=== PATIENT | female | born 1960 | race Caucasian/White ===

== ENCOUNTER 2018-11-17 01:29 | Observation (INO) | payer OTHER, SELFPAY ==
[2018-11-17 02:13] LABS: Absolute Lymphocytes (CBC) 1.9 K/uL (0.7-4.9); Basophils % 1.5 % (0-1.3); Eosinophils % 3.7 % (0-4.4); Hematocrit 38.6 % (36.0-45.0); Lymphocytes % 27.9 % (15.3-44.8); MPV 12.4 fL (7.6-11.3); Monocytes % 10.6 % (3.3-12.3); RBC Red Blood Cell Count 3.97 M/uL (3.86-4.86)
[2018-11-17 02:14] LABS: Protime INR 1.09
[2018-11-17 02:29] LABS: ALT/SGPT 27 U/L (12-78); AST/SGOT 24 U/L (15-37); Albumin 3.8 g/dL (3.4-5.0); Alkaline Phosphatase 103 U/L (45-117); BUN Blood Urea Nitrogen 19 mg/dL (7-18); Bicarbonate 27 mmol/L (21-32); Bilirubin Direct < 0.1 mg/dL (0-0.2); Bilirubin Total 0.4 mg/dL (0.2-1.0); Glucose Level 109 mg/dL (74-106); Magnesium 2.4 mg/dL (1.8-2.4); NT PRO-BNP 19 pg/mL (<125); Potassium 3.3 mmol/L (3.5-5.1); Protein, Total 7.9 g/dL (6.4-8.2); Sodium Level 142 mmol/L (136-145); Troponin (Emerg Dept Use Only) 0.02 ng/mL (0.0-0.045)
[2018-11-17] MEDS ORDERED: NA CHLORIDE 0.9% 100 ML IV ONE (02:31)
[2018-11-17] MEDS ORDERED: FOLIC ACID 5 MG/ML VIAL ONE (02:31)
[2018-11-17] MEDS ORDERED: PROPRANOLOL HCL 10 MG TAB ONE (02:34)
[2018-11-17 02:45] LABS: Thyroid Stimulating Hormone 4.64 uIU/mL (0.360-3.740)
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
--- NOTE | 2018-11-17 02:50 | ER ---
Nurse's Notes [facility] Name: Candace Burton Age: 57 yrs Sex: Female : 1960 Arrival Date: 11/17/2018 Time: 01:32 Bed 5 Private MD: Diagnosis: Chest pain, unspecified;Essential (primary) hypertension;Syncope and collapse-near;Hypokalemia Presentation: 11/17 01:39 Presenting complaint: Patient states: became dizzy and fatigued while at work at [place] [id number] [employer]. pt stated she had this happen before due to stress. 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 Transition of care: patient was not received from another setting of care. Onset of symptoms was November 17, 2018. Risk Assessment: Do you want to hurt yourself or someone else? Patient reports no desire to harm self or others. Initial Sepsis Screen: Does the patient meet any 2 criteria? No. Patient's initial sepsis screen is negative. Does the patient have a suspected source of infection? No. Patient's initial sepsis screen is negative. Care prior to arrival: IV initiated. 18 GA, in the left antecubital area, Glucose check: 146. 01:39 Acuity: LUIS EDUARDO 2 ak1 01:39 Method Of Arrival: EMS: [facility] Triage Assessment: 01:37 General: Appears in no apparent distress. Behavior is calm, cooperative. Pain: Denies ak1 pain. EENT: No signs and/or symptoms were reported regarding the EENT system. Neuro: Level of Consciousness is awake, alert, obeys commands, Oriented to person, place, time, situation, Appropriate for age Department Coordinator are equal bilaterally Moves all extremities. Speech is normal, Facial symmetry appears normal. Cardiovascular: No deficits noted. Respiratory: No deficits noted. GI: No signs and/or symptoms were reported involving the gastrointestinal system. : No signs and/or symptoms were reported regarding the genitourinary system. Derm: No signs and/or symptoms reported regarding the dermatologic system. Musculoskeletal: Reports generalized weakness and dizziness while at work. Historical: - Allergies: 01:37 Codeine; ak1 - Home Meds: 01:37 Synthroid 150 mcg Oral tab 1 tab once daily for Hypothyroidism [Active]; ak1 - PMHx: 01:37 Hypothyroidism; ak1 - PSHx: 01:37 None; ak1 - Immunization history:: Adult Immunizations not up to date, Flu vaccine is not up to date. Patient has never been vaccinated. - Social history:: Smoking status: Patient/guardian denies using tobacco. - Ebola Screening: : No symptoms or risks identified at this time. Screenin:43 Abuse screen: Denies threats or abuse. Denies injuries from another. Nutritional ak1 screening: No deficits noted. Tuberculosis screening: No symptoms or risk factors identified. Fall Risk None identified. Assessment: 01:44 Reassessment: Patient appears in no apparent distress at this time. pt in CT. see ak1 triage assessment. 02:25 Reassessment: Patient appears in no apparent distress at this time. Patient and/or ak1 family updated on plan of care and expected duration. Pain level reassessed. Patient is alert, oriented x 3, equal unlabored respirations, skin warm/dry/pink. Patient denies pain at this time. 02:40 Reassessment: Dr. Grier at bedside to inform pt of admission status. ak1 03:44 Reassessment: dr. Salomon at bedside. pt requesting something to "relax" her. ak1 Lopressor IV held due to heart rate of 59bpm, Dr. Salomon notified. . Vital Signs: 01:36 BP 190 / 97 RA Sitting (auto/lg); Pulse 86; Resp 14; Temp 97.5(O); Pulse Ox 98% on R/A; ak1 Weight 90.72 kg (R); Height 5 ft. 10 in. (177.80 cm) (R); Pain 0/10; 01:55 BP 167 / 97 LA Sitting (auto/lg); Pulse 75; Pulse Ox 98% ; ak1 02:00 BP 173 / 105 RA Sitting (auto/lg); Pulse 76; Pulse Ox 98% on R/A; ak1 02:44 BP 185 / 106; Pulse 69; Resp 14; Temp 97.5; Pulse Ox 98% on R/A; Pain 0/10; ak1 03:43 BP 176 / 98; Pulse 59; Resp 12; Temp 98.1; Pulse Ox 99% on R/A; Pain 0/10; ak1 01:36 Body Mass Index 28.70 (90.72 kg, 177.80 cm) ak1 ED Course: 01:31 Tan[facility] Haley F[facility]-C [facility] snw 01:31 Edouard Grier MD is Attending Physician. snw 01:32 Patient arrived in ED. ds1 01:35 Ciera Baker, RN is Primary Nurse. ak1 01:39 Arm band placed on Patient placed in an exam room, on a stretcher, on dye line operator, ak1 on pulse oximetry, Patient notified of wait time. 01:43 Triage completed. ak1 01:44 Patient has correct armband on for positive identification. Bed in low position. Call ak1 light in reach. Side rails up X 1. paper machine back tender on. Pulse ox on. NIBP on. 01:44 Maintain EMS IV. Dressing intact. Site clean \\T\\ dry. Gauge \\T\\ site: 18g left AC. ak 1 01:56 X-ray completed. Portable x-ray completed in exam room. Patient tolerated procedure kw well. 01:57 CT Stroke Brain w/o Contrast In Process Unspecified. EDMS 01:58 XRAY Chest (1 view) In Process Unspecified. EDMS 02:47 Sandor Mims MD is Hospitalizing Provider. jose eduardo 03:52 No provider procedures requiring assistance completed. Patient admitted, IV remains in ak1 place. Administered Medications: 02:19 Drug: foLIC Acid 1 mg Route: IVPB; Site: left antecubital; ak1 02:25 Follow up: IV Status: Completed infusion; IV Intake: 100ml ak1 02:24 Drug: Propranolol 20 mg Route: PO; ak1 02:40 Follow up: Response: No adverse reaction ak1 03:08 Drug: Lovenox 90 mg Route: Sub-Q; Site: right lower abdomen; rr5 04:56 Follow up: Response: No adverse reaction ak1 03:10 Drug: Norvasc 5 mg Route: PO; rr5 04:56 Follow up: Response: No adverse reaction ak1 03:11 Drug: Aspirin Chewable Tablet 324 mg Route: PO; rr5 04:56 Follow up: Response: No adverse reaction ak1 03:12 Drug: Potassium Effervescent Tablet 25 mEq Route: PO; rr5 04:56 Follow up: Response: No adverse reaction ak1 03:43 Not Given (heart rate 59bpm): Lopressor 5 mg IVP once; Hold for SBP <100 or HR <60. ak1 Intake: 02:25 IV: 100ml; Total: 100ml. ak1 Outcome: 02:50 Decision to Hospitalize by Provider. jose eduardo 03:52 Admitted to ER Hold. Please see [facility] for further documentation. ak1 03:52 Condition: stable 03:52 Instructed on the need for admit. 11:29 Patient left the ED. bp Signatures: Dispatcher [employer] EDMS Edouard Grier MD MD cha Therrien, Shelly, BICYCLE COURIER-C BICYCLE COURIER-CsnKassandra Portillo ds1 Marian Wu Amber RN RN ak1 Alejo Encarnacion, RN RN bp Castillo Robertson, RN RN rr5 Corrections: (The following items were deleted from the chart) 02:03 01:36 BP 190 / 97; Pulse 86bpm; Resp 14bpm; Pulse Ox 98% RA; Temp 97.5F Oral; 90.72 kg ak1 Reported; Height 5 ft. 10 in. Reported; BMI: 28.7; Pain 0/10; ak1 02:57 02:00 BP 173 / 105 Supine Auto R Arm Large; Pulse 76bpm; Pulse Ox 98% RA; ak1 ak1
[2018-11-17] MEDS ORDERED: ASPIRIN 81 MG CHEWABLE TABLET ONE (03:13)
[2018-11-17] MEDS ORDERED: ENOXAPARIN 100 MG/ML SYR SQ ONE (03:13)
[2018-11-17] MEDS ORDERED: AMLODIPINE 5 MG TAB ONE (03:13)
[2018-11-17] MEDS ORDERED: POTASSIUM 25 MEQ EFFERV TAB ONE (03:13)
[2018-11-17] MEDS ORDERED: METOPROLOL TARTRATE 5 MG/5 ML INJ IV ONE (03:14)
[2018-11-17] MEDS ORDERED: HYDRALAZINE HCL 20 MG/ML VIAL IV ONE (03:39)
--- NOTE | 2018-11-17 03:52 | P.HP ---
Certification for Inpatient Patient admitted to: Observation With expected LOS: <2 Midnights Practitioner: I am a practitioner with admitting privileges, knowledge of patient current condition, hospital course, and medical plan of care. Services: Services provided to patient in accordance with Admission requirements found in Title 42 Section 412.3 of the Code of Federal Regulations Patient History Date of Service: 11/17/18 Reason for admission: chest pain History of Present Illness: Ms Burton is a 57 years old woman, with history of hypothyroidism, who was at work yesterday night, when suddenly start feeling chest pain. It was located in substernal area, lasting for 5 minutes, burning sensation, 8/10 of intensity, radiated to her jaw. She denied nausea, SOB or diaphoresis episodes. She has never had this pain in the past. At arrival her BP was in the higher side, 190/ 97. She has not focal neurologic deficit. Lab work shows normal WBC count, normal trop. EKG SR without ST-T abnormalities. At my encounter the patient was chest pain free. Initial trop I negative. Home medications list reviewed: Yes - Past Medical/Surgical History -: hypothyrodism Past Surgical History: Reviewed- Non-Contributory - Family History Family History: Reviewed- Non-Contributory - Social History Smoking Status: Never smoker Alcohol use: No CD- Drugs: No Place of Residence: Home Review of Systems 10-point ROS is otherwise unremarkable Physical Examination - Physical Exam General: Alert, In no apparent distress HEENT: Atraumatic, PERRLA, Mucous membr. moist/pink, EOMI, Sclerae nonicteric Neck: Supple, 2+ carotid pulse no bruit, No LAD, Without JVD or thyroid abnormality Respiratory: Clear to auscultation bilaterally, Normal air movement Cardiovascular: Regular rate/rhythm, Normal S1 S2 Gastrointestinal: Normal bowel sounds, No tenderness Musculoskeletal: No tenderness Integumentary: No rashes Neurological: Normal gait, Normal speech, Normal strength at 5/5 x4 extr, Normal tone, Normal affect Lymphatics: No axilla or inguinal lymphadenopathy - Studies Laboratory Data (last 24 hrs) 11/17/18 01:59: PT 12.8 H, INR 1.09 11/17/18 01:59: WBC 6.9, Hgb 12.9, Hct 38.6, Plt Count 176 11/17/18 01:59: Sodium 142, Potassium 3.3 L, BUN 19 H, Creatinine 1.06, Glucose 109 H, Magnesium 2.4, Total Bilirubin 0.4, AST 24, ALT 27, Alkaline Phosphatase 103 Assessment and Plan - Problems (Diagnosis) (1) Chest pain Current Visit: Yes Status: Acute Qualifiers: Chest pain type: precordial pain Qualified Code(s): R07.2 - Precordial pain (2) Hypothyroidism Current Visit: Yes Status: Acute Qualifiers: Hypothyroidism type: unspecified Qualified Code(s): E03.9 - Hypothyroidism , unspecified (3) HTN (hypertension) Current Visit: Yes Status: Acute Qualifiers: Hypertension type: essential hypertension Qualified Code(s): I10 - Essential (primary) hypertension - Plan Will admit the patient for chest pain. Order serial cardiac enzymes and EKG, EHCO in AM, cardiology consult. Will start Lisinopril for HTN. - Advance Directives Does patient have a Living Will: No Does patient have a Durable POA for Healthcare: No - Code Status/Comfort Care Code Status Assessed: Yes Code Status: Full Code
[2018-11-17] MEDS ORDERED: NITROGLYCERIN 0.4 MG/TAB SL PRN (04:16)
[2018-11-17 04:43] VITALS: BMI 28.7
[2018-11-17 04:52] LABS: Urine Culture Reflex Order NOT NEEDED; Urine Mucus 1+ /HPF (NONE SEEN)
[2018-11-17 04:52] LABS: Urine Blood TRACE (NEG); Urine Glucose NEGATIVE (NEG); Urine Protein NEGATIVE (NEG); Urine pH 5.5 (5.0-7.0)
[2018-11-17 04:54] LABS: Urine Bacteria <20 /HPF (<20); Urine RBC <5 /HPF (NONE SEEN)
--- NOTE | 2018-11-17 08:04 | EKG ---
Test Date: 2018-11-17 Test Time: 01:59:20 Superintendent Meters: KATE MEASUREMENT RESULTS: Intervals: Rate: 76 VA: 158 QRSD: 92 QT: 400 QTc: 490 Mentor: P: 50 VA: 158 QRS: 9 T: 28 INTERPRETIVE STATEMENTS: Normal sinus rhythm Possible Left atrial enlargement Incomplete right bundle branch block abnormal ECG No previous ECG available for comparison Electronically Signed On 11-17-18 08:03:53 CDT by Iván Fuller
[2018-11-17] MEDS ORDERED: LISINOPRIL 10 MG TAB PO SCH (09:00)
[2018-11-17] MEDS: LISINOPRIL 10 MG TAB PO SCH (09:00)
[2018-11-17] MEDS: ASPIRIN EC 81 MG TAB PO SCH (09:00)
[2018-11-17] MEDS: ENOXAPARIN 40 MG/0.4 ML SQ SCH (09:00)
[2018-11-17] MEDS ORDERED: ASPIRIN EC 81 MG TAB PO ONE (09:32)
[2018-11-17] MEDS ORDERED: ENOXAPARIN 40 MG/0.4 ML SQ ONE (09:33)
[2018-11-17] MEDS ORDERED: LISINOPRIL 20 MG TAB ONE (09:33)
[2018-11-17] MEDS ORDERED: FENTANYL CITR 100 MCG/2 ML ONE (11:30)
[2018-11-17] MEDS ORDERED: ONDANSETRON 4 MG/2 ML VIAL ONE (11:30)
--- NOTE | 2018-11-17 11:44 | RAD REPORT ---
EXAM DESCRIPTION: RAD - Chest Single View - 11/17/2018 1:59 am CLINICAL HISTORY: CHEST PAIN Chest pain. COMPARISON: No comparisons FINDINGS: Portable technique limits examination quality. The lungs are emphysematous but grossly clear. The heart is normal in size. No displaced fractures. IMPRESSION: No acute intrathoracic process suspected.
--- NOTE | 2018-11-17 13:38 | CON ---
History Of Present Illness: Ms. Burton was at work yesterday when she had an episode of an irregula r heartbeat feeling, a feeling of lightheadedness, a headache-like feeling, a feeling that she had to bend over. In about 10 seconds, it resolved. She did not fall. She felt like if it had gone longe r, she might have fallen. It was her first episode like that. She works in a long term, and her blood pressure was taken and it was markedly elevated, systolic around 220. She was brought to the e mergency room. Hypertension was documented. She has had normal cardiac enzymes, an EKG that does no t show infarction, injury or ischemia, and she is being admitted to the hospital to have improvement in her blood pressure treatment. She is also noted to have her thyroid gland a little bit out of ord er. She takes levothyroxine, but her TSH is slightly elevated, and she also has dyslipidemia that hagan s not been treated. The patient uses no tobacco, alcohol, or illegal drugs. There is no previous hi story of myocardial infarction, stroke, diabetes, dyslipidemia. Physical Examination: General: 5 feet 10 inches, 200 pounds. HEENT: Unremarkable. Carotids no bruit. Lungs: Clear. Cardiac: Normal. Abdomen: Soft. Extremities: No cyanosis, clubbing, or edema. Distal pulses palpable. Recommendation: The patient should start improved therapy for thyroid, probably increase the dose of levothyroxine. The blood pressure medications lisinopril has been started and in a progressive fash ion. Doses should be increased. Her medicines added to get her blood pressure good, and she should undergo an echo and pharmacologic stress test to see if her symptoms are a sign that she has underlyi ng ischemic heart disease. We should initiate therapy with lipid-lowering drugs as well. Thank you very much for your kind referral of Ms. Burton. I will follow her with you. MACIEL/REMINGTON Voice ID: [id number] Report ID: [id number]
--- NOTE | 2018-11-17 14:29 | PN ---
Date of Progress Note: 11/17/2018 Subjective: The patient seen and examined. Chart reviewed and case discussed with RN. The patient denies any shortness of breath. Does have some burning sensation on her chest. Medications: List reviewed. Physical Examination: Vital Signs: Temperature 97.8, heart rate 68, blood pressure 131/74, respirations 15, O2 is 98% on room air. General: Awake, alert, oriented x3. Appears older than stated age, ill- appearing female. CV: S1 and S2. Regular rate and rhythm. Peripheral pulses present. Respiratory: Moving air well bilaterally. No wheezing or stridor. Gastrointestinal: Abdomen is soft, nontender, nondistended. Positive bowel sounds. Extremities: No clubbing, cyanosis, or edema. Neurologic: Nonfocal. Laboratory Data: Sodium 142, potassium 3.3, chloride 106, CO2 27, BUN 19, creatinine 1.06, calcium 8.3, glucose 109, magnesium 2.4, troponin 0.02, triglycerides 102, cholesterol 222, LDL 155, HDL 47, TSH 4.6. UA shows negative nitrite, trace leukocyte esterase, 10-20 WBC, less than 20 bacteria. Urine culture pending. CT scan of the brain shows no acute changes. Chest x- ray, no acute intrathoracic process. Assessment And Plan: A 57-year-old female with: 1. Chest pain rule out acute coronary syndrome. Initial cardiac enzymes negative. EKG did show some changes. We will continue to monitor. Continue chest pain guidelines. Cardiology has been consulted. 2. Hypothyroidism. TSH is elevated. We will adjust Synthroid dose. 3. Essential hypertension. The patient has not been taking any medications for her blood pressure. We will continue her lisinopril and use hydralazine p.r.n. Plan: DC pending Cardiology recommendations. /REMINGTON Voice ID: [id number] Report ID: [id number] YUVAL
[2018-11-17] MEDS ORDERED: ROSUVASTATIN 10 MG TAB PO SCH (21:00)
[2018-11-18 04:16] LABS: Absolute Lymphocytes (CBC) 1.5 K/uL (0.7-4.9); Basophils % 1.4 % (0-1.3); Eosinophils % 3.9 % (0-4.4); Hematocrit 39.2 % (36.0-45.0); Lymphocytes % 25.2 % (15.3-44.8); MPV 12.4 fL (7.6-11.3); Monocytes % 9.1 % (3.3-12.3); RBC Red Blood Cell Count 3.98 M/uL (3.86-4.86)
[2018-11-18 04:36] LABS: Potassium 3.8 mmol/L (3.5-5.1)
[2018-11-18] MEDS ORDERED: LEVOTHYROXINE SOD 0.075 MG TAB PO SCH (06:30)
[2018-11-18] MEDS: ENOXAPARIN 40 MG/0.4 ML SQ SCH (08:03)
[2018-11-18] MEDS: LISINOPRIL 10 MG TAB PO SCH (08:04)
[2018-11-18] MEDS: ASPIRIN EC 81 MG TAB PO SCH (08:05)
[2018-11-18 08:17] VITALS: TEMP 97.8
[2018-11-18 08:51] VITALS: O2SAT 95
[2018-11-18 12:05] VITALS: BP 126/65
--- NOTE | 2018-11-18 12:09 | PN ---
Mrs. Burton is doing well. She is not having any discomfort. Her vital signs are greatly improved, 122/57 this morning's blood pressure. I think she should be discharged for outpatient care. She sh ould continue on Crestor 20, lisinopril 40, levothyroxine 200 mcg daily, aspirin and she should have followup visits with her primary care physician. I would be glad to see her in the future if needed. MACIEL/REMINGTON Voice ID: [id number] Report ID: [id number]
--- NOTE | 2018-11-18 16:21 | PN ---
Date of Progress Note: 11/18/2018 Subjective: The patient seen and examined. Chart reviewed and case discussed with RN. The patient denies any further chest pain. Still reports some burning of her chest. Physical Examination: Vital Signs: Temperature 97.8, heart rate 67, blood pressure 122/69, respirations 14 ,and O2 96% on room air. GENERAL: Awake, alert, and oriented x3. Appears older than stated age. CV: S1 and S2. Regular rate and rhythm. Peripheral pulses present. Respiratory: Moving air well bilaterally. No wheezing or stridor. Gastrointestinal: Abdomen is soft, nontender, nondistended. Positive bowel sounds. Extremities: No clubbing, cyanosis, or edema. Neurologic: Nonfocal. Laboratory Data: Sodium 141, potassium 3.8, chloride 107, CO2 27, BUN 15, creatinine 0.93, glucose 98, calcium 8.3. Troponin levels have been negative x3. Triglycerides 102, cholesterol 222, LDL is 155, HDL is 47. WBC 5.9, H and H 12.7 and 39.2, platelets 160. Urine culture growing out mixed dhara. Assessment And Plan: A 57-year-old female with; 1. Chest pain. Acute coronary system has been ruled out. Will discuss with cardiology recommendations for further testing as outpt vs inpt. 2. Essential hypertension, not well controlled. Blood pressure medications have been adjusted. Blood pressure is improved. 3. Hypothyroidism. Synthroid dose has been adjusted. We will need repeat TSH in 6 to 8 weeks. 4. Hyperglycemia, resolved, likely acute phase reactant. 5. Deep vein thrombosis prophylaxis with Lovenox. /REMINGTON Voice ID: [id number] Report ID: [id number] YUVAL
[2018-11-19] MEDS ORDERED: LEVOTHYROXINE SOD 0.1 MG TAB PO SCH (06:30)
--- NOTE | 2018-11-19 11:56 | RAD REPORT ---
EXAM DESCRIPTION: Ct Stroke Brain Wo Cont CLINICAL HISTORY: 57 years Female DIZZINESS COMPARISON: None TECHNIQUE: Contiguous axial images of the brain were obtained without the administration of intraven ous contrast.This exam was performed according to our departmental dose-optimization program which in cludes use of Automated Exposure Control, adjustment of the mA and/or kV according to patient size an d/or use of iterative reconstruction technique. FINDINGS: Brain: No acute intracranial hemorrhage. No acute territorial infarct. No extra-axial cornelius ection. No mass effect or herniation. Mild prominence of the sulci and cisterns Confluent periventr icular and subcortical white matter hypodensity is noted. Ventricles: Within normal limits in size. Globes and orbits: No acute abnormality. Bones: No acute osseous finding. Paranasal sinuses: Paranasal sinuses are clear.. Mastoid air cells: Well pneumatized.. Soft tissues: Within normal limits IMPRESSION: No acute intracranial hemorrhage, hydrocephalus or herniation. Mild cerebral volume loss and chronic small vessel ischemic changes. If persistent clinical concern f or acute ischemia, consider MRI brain without contrast for further evaluation. THIS REPORT CONTAINS FINDINGS THAT MAY BE CRITICAL TO PATIENT'S CARE: The findings were verbally discussed via telephone conference with Tanika Haley ([employer] INFORMATICA DEVELOPER) by Dr. Gregory nixon on 11/17/2018 2:03 AM CDT. The results were acknowledged and understood. Electronically signed by: Aleks Norman DO 11/17/2018 2:03 AM CDT Due to temporary technical issues with the PACS/Fluency reporting system, reports are being signed by the in house radiologist as a courtesy to ensure prompt reporting. The interpreting radiologist is f ully responsible for the content of the report.
--- NOTE | 2018-11-20 04:36 | DS ---
Date of Discharge: 11/18/2018 Consultants: Dr. Fuller with Cardiology. Procedures: None. Discharge Diagnoses: 1.Chest pain, acute coronary syndrome ruled out. 2.Essential hypertension, not well controlled. Medications adjusted. 3.Hypothyroidism. Elevated TSH. Synthroid dose increased. 4.Hyperglycemia, resolved. 5.Mixed hyperlipidemia. Continue statin. Hospital Course: The patient is a 57-year-old female who comes into the hospital with burning type c hest pain. The patient was admitted to the hospital, started on chest pain guidelines. The patient' s cardiac enzymes were obtained and ACS was ruled out. The patient did well over the course of the h ospital stay. The patient was seen by Dr. Fuller of Cardiology. Her blood pressure medications were adjusted. Her triglyceride levels and cholesterol levels were elevated. She was placed on statin d rugs. She did have some hyperglycemia. She states she has not seen a PCP since moving recently. Javier gonzalez also had an elevated TSH and her thyroid dose was adjusted. The patient's symptoms improved signif icantly. Dr. Fuller then recommended outpatient followup and echocardiogram and stress test. The emil franco was able to ambulate without difficulty. No further chest pain episodes. No changes on her EK G. The patient was provided a list of primary care physicians in the area as well as contact informa tion for Cardiology. The patient was then discharged home in a stable condition. Activity: As tolerated. Medications: As per medication reconciliation list. Followup: Establish care with primary care physician in 1 week. Follow up with power originator, Dr. Nitin olvera, next week. Return to ER for worsening condition. Diet: Heart healthy. Activity: As tolerated. Physical Examination: For physical exam findings, please see progress note dictated on the day of discharge. SA/MODL Voice ID: [id number] Report ID: [id number]
== END 2018-11-18 14:50 | disposition home or self-care (01) ==
LOC: ER 01:29 → ERHOLD 04:12 → 2ND 11:17
PROVIDERS: ADMIT Internal Medicine; ATTEND Internal Medicine
DX: R07.9 Chest pain, unspecified (principal); I10 Essential (primary) hypertension; E03.9 Hypothyroidism, unspecified; R73.9 Hyperglycemia, unspecified; E78.2 Mixed hyperlipidemia
CPT/HCPCS: 36415; 70450; 71045; 80048; 80061; 80076; 81003; 81015; 83735; 83880; 84439; 84443; 84484; 85025; 85610; 87086; 87088; 93005; 96372; 96374; 99285; G0378; J0360; J1650; J2405; J3010

== ENCOUNTER 2018-12-27 00:39 | Emergency (ER) | payer SELFPAY ==
[2018-12-27 01:32] LABS: Absolute Lymphocytes (CBC) 1.6 K/uL (0.7-4.9); Basophils % 1.3 % (0-1.3); Hematocrit 36.6 % (36.0-45.0); RBC Red Blood Cell Count 3.83 M/uL (3.86-4.86)
[2018-12-27 01:39] LABS: Protime INR 1.07
[2018-12-27] MEDS ORDERED: MAGNE/ALUM HYDROXD 30 ML UCUP ONE (01:45)
[2018-12-27] MEDS ORDERED: NA CHLORIDE 0.9% 500 ML ONE (01:45)
[2018-12-27] MEDS ORDERED: ASPIRIN EC 81 MG TAB PO ONE (01:45)
[2018-12-27] MEDS ORDERED: LIDOCAINE VISCOUS 2% SOLN 15 ML UDC ONE (01:46)
[2018-12-27] MEDS ORDERED: FAMOTIDINE 20 MG/2 ML VIAL IV ONE (01:46)
[2018-12-27 01:53] LABS: ALT/SGPT 21 U/L (12-78); AST/SGOT 15 U/L (15-37); Albumin 3.3 g/dL (3.4-5.0); Alkaline Phosphatase 85 U/L (45-117); BUN Blood Urea Nitrogen 15 mg/dL (7-18); Bicarbonate 26 mmol/L (21-32); Bilirubin Direct < 0.1 mg/dL (0-0.2); Bilirubin Total 0.3 mg/dL (0.2-1.0); Glucose Level 103 mg/dL (74-106); Lipase 63 U/L (73-393); Magnesium 2.3 mg/dL (1.8-2.4); NT PRO-BNP 63 pg/mL (<125); Potassium 3.5 mmol/L (3.5-5.1); Protein, Total 7.1 g/dL (6.4-8.2); Sodium Level 142 mmol/L (136-145); Troponin I < 0.02 ng/mL (0.0-0.045)
--- NOTE | 2018-12-27 02:59 | ER ---
Nurse's Notes [facility] [place] Name: Candace Burton Age: 58 yrs Sex: Female : 1960 Arrival Date: 12/27/2018 Time: 00:42 Bed 8 Private MD: Diagnosis: Palpitations;Hypertensive heart disease Presentation: 12/27 00:57 Presenting complaint: Patient states: pt states she was at work and felt that her heart sr6 was beating wrong, they took her blood pressure and the systolic was 200mmhg. Transition of care: patient was not received from another setting of care. Onset of symptoms was December 27, 2018. Risk Assessment: Do you want to hurt yourself or someone else? Patient reports no desire to harm self or others. Initial Sepsis Screen: Does the patient meet any 2 criteria? No. Patient's initial sepsis screen is negative. Does the patient have a suspected source of infection? No. Patient's initial sepsis screen is negative. Care prior to arrival: None. 00:57 Method Of Arrival: Ambulatory sr6 00:57 Acuity: LUIS EDUARDO 3 sr6 Historical: - Allergies: 01:02 Codeine; sr6 01:02 Milk/dairy products; sr6 - Home Meds: 01:02 Synthroid 200 mcg oral tab 1 tab once daily [Active]; lisinopril 40 mg Oral tab 1 tab sr6 once daily [Active]; - PMHx: 01:02 Hypothyroidism; Hypertension; sr6 - PSHx: 01:02 None; sr6 - Immunization history:: Adult Immunizations up to date. - Social history:: Smoking status: Patient/guardian denies using tobacco. - Ebola Screening: : No symptoms or risks identified at this time. Screenin:04 Abuse screen: Denies threats or abuse. Nutritional screening: No deficits noted. sr6 Tuberculosis screening: No symptoms or risk factors identified. Fall Risk None identified. Assessment: 01:04 General: Appears in no apparent distress. Behavior is calm, cooperative. Pain: Denies sr6 pain. Neuro: Level of Consciousness is awake, alert, obeys commands, Oriented to person, place, time, situation. Cardiovascular: Reports irregular heart beat and high blood pressure Heart tones S1 S2 present Capillary refill < 3 seconds Patient's skin is warm and dry. Rhythm is irregular. Respiratory: Respiratory effort is even, unlabored, Respiratory pattern is regular, Breath sounds are clear bilaterally. GI: No signs and/or symptoms were reported involving the gastrointestinal system. Derm: Skin is pink, warm \T\ dry. Musculoskeletal: Circulation, motion, and sensation intact. 02:19 Reassessment: Patient is alert, oriented x 3, equal unlabored respirations, skin bb warm/dry/pink. pt states she has had some improvement to her epigastric pain, IV site intact, patent with fluids infusing, pt awaiting diagnostic results Patient states feeling better. 03:01 Reassessment: Patient and/or family updated on plan of care and expected duration. Pain bb level reassessed. Patient is alert, oriented x 3, equal unlabored respirations, skin warm/dry/pink. pt verbalized understanding of and agrees to plan of care discharge instructions given pt ambulated with steady gait to exit. Vital Signs: 01:02 BP 180 / 89; Pulse 91; Resp 16 S; Temp 97.6(O); Pulse Ox 98% ; Weight 90.72 kg (R); sr6 Height 5 ft. 10 in. (177.80 cm); Pain 0/10; 02:18 BP 167 / 95; Pulse 71; Resp 12 S; Pulse Ox 95% on R/A; bb 03:00 BP 145 / 86; Pulse 67; Resp 10 S; Temp 97.7(O); Pulse Ox 96% on R/A; bb 01:02 Body Mass Index 28.70 (90.72 kg, 177.80 cm) sr6 ED Course: 00:42 Patient arrived in ED. ag3 00:46 [facility] Ward [facility]. cp 00:46 Edouard Grier MD is Attending Physician. cp 01:01 Triage completed. sr6 01:02 Arm band placed on. EKG completed in triage. Results shown to MD. sr6 01:04 Patient has correct armband on for positive identification. Bed in low position. Call sr6 light in reach. Side rails up X2. ground crewman mission support on. Pulse ox on. NIBP on. 01:21 Initial lab(s) drawn, by me, sent to lab. Inserted saline lock: 20 gauge in right sr6 antecubital area, using aseptic technique. Blood collected. 01:49 X-ray completed. Portable x-ray completed in exam room. Patient tolerated procedure kw well. 01:53 Chest Single View In Process Unspecified. EDMS 02:57 Iván Fuller MD is Referral Physician. cp 03:02 No provider procedures requiring assistance completed. IV discontinued, intact, bb bleeding controlled, No redness/swelling at site. Pressure dressing applied. Administered Medications: 01:30 Drug: Aspirin Chewable Tablet 324 mg Route: PO; sr6 02:17 Follow up: Response: No adverse reaction sr6 01:30 Drug: NS 0.9% 500 ml Route: IV; Rate: bolus; Site: right antecubital; sr6 02:18 Follow up: IV Status: Completed infusion; IV Intake: 500ml sr6 01:32 Drug: Pepcid 20 mg Route: IVP; Site: right antecubital; sr6 02:17 Follow up: Response: Marked relief of symptoms sr6 01:51 Drug: GI Cocktail without - (Maalox Suspension 30 ml, Lidocaine Liquid 2 % 15 sr6 ml) Route: PO; 02:16 Follow up: Response: Marked relief of symptoms sr6 01:52 CANCELLED (Physician Discretion): Zofran 4 mg IVP once; over 2 minutes sr6 02:55 CANCELLED (Physician Discretion): amLODIPine 10 mg PO once cp Intake: 02:18 IV: 500ml; Total: 500ml. sr6 Outcome: 02:58 Discharge ordered by . cp 03:07 Discharged to home ambulatory. bb 03:07 Condition: stable 03:07 Discharge instructions given to patient, Instructed on discharge instructions, follow up and referral plans. Demonstrated understanding of instructions, follow-up care. 03:08 Patient left the ED. bb Signatures: Dispatcher [employer] EDMS Ivonne Scanlon RN RN Marian Teran Corey, PA PA cp Gomez, Alice ag3 Roque, Sharlyn sr6
--- NOTE | 2018-12-27 02:59 | EDPHYS ---
Physician Documentation [facility] Name: Candace Burton Age: 58 yrs Sex: Female : 1960 Arrival Date: 12/27/2018 Time: 00:42 Bed 8 Private MD: ED Physician Edouard Grier HPI: 12/27 01:05 This 58 yrs old Female presents to ER via Ambulatory with complaints of High cp Blood Pressure. 01:05 The patient has elevated blood pressure and discovered this at work. Onset: The cp symptoms/episode began/occurred history of hypertension. Associated signs and symptoms: Pertinent positives: palpitation, epigastric discomfort, Pertinent negatives: chest pain, dizziness, headache, lightheadedness, vomiting, weakness. Severity of symptoms: At its worst the blood pressure was 200 mm Hg, in the emergency department the blood pressure is improved, 180 mm Hg. 01:05 Patient reports she took Lisinopril 40 mg about 1900 before going to work. Lisinopril cp was prescribed at last ED visit and patient has not f/u with a primary physician. Historical: - Allergies: 01:02 Codeine; sr6 01:02 Milk/dairy products; sr6 - Home Meds: 01:02 Synthroid 200 mcg oral tab 1 tab once daily [Active]; lisinopril 40 mg Oral tab 1 tab sr6 once daily [Active]; - PMHx: 01:02 Hypothyroidism; Hypertension; sr6 - PSHx: 01:02 None; sr6 - Immunization history:: Adult Immunizations up to date. - Social history:: Smoking status: Patient/guardian denies using tobacco. - Ebola Screening: : No symptoms or risks identified at this time. ROS: 01:10 Constitutional: Negative for body aches, chills, fever, poor PO intake. cp 01:10 Eyes: Negative for injury, pain, redness, and discharge. cp 01:10 ENT: Negative for drainage from ear(s), ear pain, sore throat, difficulty swallowing, cp difficulty handling secretions. 01:10 Cardiovascular: Positive for palpitations, Negative for chest pain, edema. 01:10 Respiratory: Negative for cough, shortness of breath, wheezing. 01:10 Abdomen/GI: Positive for epigastric discomfort, Negative for vomiting, diarrhea, constipation, anorexia, dysphagia, black/tarry stool, rectal bleeding. 01:10 Back: Negative for radiated pain. 01:10 : Negative for urinary symptoms. 01:10 Skin: Negative for rash. 01:10 Neuro: Negative for altered mental status, dizziness, headache, speech changes, weakness. 01:10 All other systems are negative. cp Exam: 01:11 ECG was reviewed by the Attending Physician. cp 01:15 Constitutional: The patient appears in no acute distress, alert, awake, cp non-diaphoretic, non-toxic, well developed, well nourished. 01:15 Head/Face: Normocephalic, atraumatic. cp 01:15 Eyes: Periorbital structures: appear normal, Pupils: equal, round, and reactive to light and accomodation, Extraocular movements: intact throughout, Conjunctiva: normal, no exudate, no injection, Lids and lashes: appear normal, bilaterally. 01:15 ENT: External ear(s): are unremarkable, Ear canal(s): are normal, clear, TM's: bulging, is not appreciated, bilaterally, dullness, bilaterally, erythema, is not appreciated, bilaterally, Nose: is normal, Mouth: is normal, Posterior pharynx: is normal, airway is patent, no erythema, no exudate. 01:15 Neck: ROM/movement: is normal, is supple, without pain, no range of motions limitations, no nuchal rigidity. 01:15 Chest/axilla: Inspection: normal, Palpation: is normal, no crepitus, no tenderness. 01:15 Cardiovascular: Rate: normal, Rhythm: regular, Heart sounds: murmur, not appreciated, Edema: is not appreciated, JVD: is not appreciated. 01:15 Respiratory: the patient does not display signs of respiratory distress, Respirations: normal, no use of accessory muscles, no retractions, no splinting, no tachypnea, labored breathing, is not present, Breath sounds: are clear throughout, no decreased breath sounds, no stridor, no wheezing. 01:15 Abdomen/GI: Inspection: abdomen appears normal, Palpation: abdomen is soft and non-tender, in all quadrants, voluntary guarding, is not appreciated, involuntary guarding, is not appreciated. 01:15 Back: pain, is absent, ROM is normal. 01:15 Neuro: Orientation: to person, place \T\ time. Mentation: is normal, Cerebellar function: is grossly normal, Motor: moves all fours, strength is normal, Sensation: is normal. Vital Signs: 01:02 BP 180 / 89; Pulse 91; Resp 16 S; Temp 97.6(O); Pulse Ox 98% ; Weight 90.72 kg (R); sr6 Height 5 ft. 10 in. (177.80 cm); Pain 0/10; 02:18 BP 167 / 95; Pulse 71; Resp 12 S; Pulse Ox 95% on R/A; bb 03:00 BP 145 / 86; Pulse 67; Resp 10 S; Temp 97.7(O); Pulse Ox 96% on R/A; bb 01:02 Body Mass Index 28.70 (90.72 kg, 177.80 cm) sr6 MDM: 00:48 Patient medically screened. cp 01:30 Differential diagnosis: hypertensive crisis, Malignant HTN, CVA, intracerebral cp hemorrhage, cardiac arrythmia. 02:54 Data reviewed: vital signs, nurses notes, lab test result(s), EKG, radiologic studies, cp plain films. Test interpretation: by ED physician or midlevel provider: ECG, chest xray negative for infiltrates. Counseling: I had a detailed discussion with the patient and/or guardian regarding: the historical points, exam findings, and any diagnostic results supporting the discharge/admit diagnosis, the presence of at least one elevated blood pressure reading (>120/80) during this emergency department visit, lab results, radiology results, the need for outpatient follow up, for definitive care, a funeral prearrangement counselor, a family practitioner, to return to the emergency department if symptoms worsen or persist or if there are any questions or concerns that arise at home. Response to treatment: the patient's symptoms have markedly improved after treatment, and as a result, I will discharge patient. 12/27 01:28 Order name: Basic Metabolic Panel; Complete Time: 02:12 EDMS 12/27 02:12 Interpretation: Normal except: CL 109; GFR 68; CA 8.2. cp 12/27 01:28 Order name: Liver (Hepatic) Function; Complete Time: 02:12 EDMS 12/27 02:12 Interpretation: Normal except: ALB 3.3; GLOB 3.8; A/G 0.9. cp 12/27 01:28 Order name: Troponin I; Complete Time: 02:12 EDMS 12/27 01:29 Order name: NT PRO-BNP; Complete Time: 02:12 EDMS 12/27 01:29 Order name: Magnesium; Complete Time: 02:12 EDMS 12/27 01:29 Order name: Lipase; Complete Time: 02:12 EDMS 12/27 00:58 Order name: EKG; Complete Time: 02:15 cp 12/27 00:58 Order name: Cardiac monitoring; Complete Time: 01:30 cp 12/27 00:58 Order name: EKG - Nurse/Tech; Complete Time: 01:30 cp 12/27 00:58 Order name: IV Saline Lock; Complete Time: 01:30 cp 12/27 00:58 Order name: Labs collected and sent; Complete Time: 01:30 cp 12/27 00:58 Order name: O2 Per Protocol; Complete Time: 01:30 cp 12/27 01:19 Order name: Chest Single View EDMS 12/27 01:29 Order name: CBC with Automated Diff; Complete Time: 02:12 EDMS 12/27 01:29 Order name: Protime (+INR); Complete Time: 02:12 EDMS 12/27 00:58 Order name: O2 Sat Monitoring; Complete Time: 01:30 cp EC:11 Rate is 88 beats/min. Rhythm is regular. MO interval is normal. QRS interval is normal. cp QT interval is prolonged at 404 msec. Interpreted by me. Reviewed by me. Administered Medications: 01:30 Drug: Aspirin Chewable Tablet 324 mg Route: PO; sr6 02:17 Follow up: Response: No adverse reaction sr6 01:30 Drug: NS 0.9% 500 ml Route: IV; Rate: bolus; Site: right antecubital; sr6 02:18 Follow up: IV Status: Completed infusion; IV Intake: 500ml sr6 01:32 Drug: Pepcid 20 mg Route: IVP; Site: right antecubital; sr6 02:17 Follow up: Response: Marked relief of symptoms sr6 01:51 Drug: GI Cocktail without - (Maalox Suspension 30 ml, Lidocaine Liquid 2 % 15 sr6 ml) Route: PO; 02:16 Follow up: Response: Marked relief of symptoms sr6 01:52 CANCELLED (Physician Discretion): Zofran 4 mg IVP once; over 2 minutes sr6 02:55 CANCELLED (Physician Discretion): amLODIPine 10 mg PO once cp Disposition: 12/27/18 02:58 Discharged to Home. Impression: Palpitations, Hypertensive heart disease. - Condition is Stable. - Discharge Instructions: Hypertension, Palpitations, How to Take Your Blood Pressure, [id number], Aspirin and Your Heart, Managing Your Hypertension. - Medication Reconciliation Form, Thank You Letter, Antibiotic Education, Prescription Opioid Use form. - Follow up: Iván Fuller MD; When: 2 - 3 days; Reason: Recheck today's complaints. - Problem is new. - Symptoms have improved. Addendum: 12/28/2018 07:10 Co-signature as Attending Physician, Edouard Grier MD I agree with the assessment and c hagan plan of care. Signatures: Dispatcher [employer] Edouard Wright MD MD cha Ballard, Brenda, RN RN bb Edouard Ward PA PA cp Dana Robertson sr6 Corrections: (The following items were deleted from the chart) 12/27 01:52 01:14 Zofran 4 mg IVP once; over 2 minutes ordered. cp sr6 02:13 02:12 Normal except: CL 109; GFR 68. cp cp 02:37 02:16 Chest Single View+RAD.RAD.BRZ ordered. EDMD EDMS 02:50 02:15 BASIC METABOLIC PANEL+C.LAB.BRZ ordered. EDMD EDMS 02:50 02:15 CBC+H.LAB.BRZ ordered. EDMD EDMS 02:50 02:15 HEPATIC FUNCTION+C.LAB.BRZ ordered. EDMD EDMS 02:50 02:15 MAGNESIUM+C.LAB.BRZ ordered. EDMD EDMS 02:50 02:15 PROBNP+C.LAB.BRZ ordered. EDMD EDMS 02:50 02:15 PROTIME (+INR)+COAG.LAB.BRZ ordered. EDMD EDMS 02:50 02:15 TROPONIN (EMERG DEPT USE ONLY)+C.LAB.BRZ ordered. EDMD EDMS 02:50 02:16 LIPASE+C.LAB.BRZ ordered. EDMD EDMS 02:55 02:45 amLODIPine 10 mg PO once ordered. cp cp 03:08 02:58 12/27/2018 02:58 Discharged to Home. Impression: Palpitations; Hypertensive heart bb disease. Condition is Stable. Forms are Medication Reconciliation Form, Thank You Letter, Antibiotic Education, Prescription Opioid Use. Follow up: Iván Fuller; When: 2 - 3 days; Reason: Recheck today's complaints. Problem is new. Symptoms have improved. cp
[2018-12-27 03:17] VITALS: BP 145/86; TEMP 97.7; O2SAT 96
--- NOTE | 2018-12-27 09:05 | RAD REPORT ---
EXAM DESCRIPTION: RAD - Chest Single View - 12/27/2018 1:53 am CLINICAL HISTORY: Epigastric pain, hypertension COMPARISON: November 2018 TECHNIQUE: AP portable chest image was obtained 0132 hours . FINDINGS: No peripheral mass or consolidation. Interstitial markings are mildly prominent but not cl early different from the comparison when adjusting for a slightly under penetrated film technique. A minimal or very early stage of interstitial edema or infiltrate cannot be entirely excluded. Heart and vasculature are normal. No measurable pleural effusion and no pneumothorax. No acute bony abnormality seen. No acute aortic findings suspected. IMPRESSION: No acute cardiopulmonary process suspected. The patient has a baseline prominent interstitial pattern. On an underpenetrated film technique, divine iest stages of an interstitial edema or infiltrate could be masked.
--- NOTE | 2018-12-27 11:22 | EKG ---
Test Date: 2018-12-27 Test Time: 00:55:05 [employer]key Keeper: NII MEASUREMENT RESULTS: Intervals: Rate: 88 HI: 146 QRSD: 90 QT: 404 QTc: 488 Mobile: P: 61 HI: 146 QRS: 0 T: 20 INTERPRETIVE STATEMENTS: Sinus rhythm with premature atrial complexes Possible Left atrial enlargement Prolonged QT Abnormal ECG Compared to ECG 11/17/2018 01:59:20 Atrial premature complex(es) now present Prolonged QT interval now present Incomplete right bundle-branch block no longer present Electronically Signed On 12-27-18 11:21:04 CDT by Dhruv Amaya
== END 2018-12-27 03:08 | disposition home or self-care (01) ==
LOC: ER 00:39
DX: I11.9 Hypertensive heart disease without heart failure (principal); R00.2 Palpitations; E03.9 Hypothyroidism, unspecified; Z88.5 Allergy status to narcotic agent; Z91.011 Allergy to milk products
CPT/HCPCS: 36415; 71045; 80048; 80076; 83690; 83735; 83880; 84484; 85025; 85610; 93005; 96361; 96374; 99284